=== PATIENT | female | born 1990 | race American Indian/Alaskan Native ===

== ENCOUNTER 2020-03-29 01:00 | Emergency (ER) | payer MEDICAID ==
[2020-03-29 01:47] LABS: Bacteria,Urine 1+ /HPF (Negative); Bilirubin,Urine NEG (Negative); Blood,Urine NEG (Negative); Color,Urine Yellow (Yellow); Mucus,Urine FEW /HPF; Protein,Urine <15 mg/dL mg/dL (Negative); Urobilinogen,Urine < 2.0 mg/dL (<2.0)
[2020-03-29 01:49] LABS: Basophils % (Auto) 0.5 % (0.0-1.8); Eosinophils # (Auto) 0.1 K/mm3 (0.0-0.4); Eosinophils % (Auto) 0.7 % (0.0-4.3); Hematocrit 39.7 % (30.3-42.9); Hemoglobin 13.5 gm/dl (10.1-14.3); Lymphocytes # (Auto) 1.2 K/mm3 (1.2-5.4); Lymphocytes % (Auto) 14.9 % (13.4-35.0); Mean Corpuscular HGB Conc 34 % (30-34); Mean Corpuscular Volume 89 fl (79-97); Monocytes % (Auto) 12.3 % (0.0-7.3); Platelet Count 221 K/mm3 (140-440); Red Blood Count 4.47 M/mm3 (3.65-5.03); Red Cell Distribution Width 13.4 % (13.2-15.2)
[2020-03-29 02:11] LABS: Alanine Aminotransferase 9 units/L (7-56); Albumin 4.2 g/dL (3.9-5); Blood Urea Nitrogen 7 mg/dL (7-17); Calcium 9.2 mg/dL (8.4-10.2); Hemolysis Index 4
[2020-03-29 02:15] LABS: BUN/Creatinine Ratio 10
--- NOTE | 2020-03-29 02:23 | Event Note ---
ED Screening Note Date of service: 03/29/20 Time: 02:22 ED Screening Note: Patient complains of left-sided abdominal pain + Dysuria History of section Fever 100.3 noted This initial assessment/diagnostic orders/clinical plan/treatment(s) is/are subject to change based on patients health status, clinical progression and re- assessment by fellow clinical providers in the ED. Further treatment and workup at subsequent clinical providers discretion. Patient/guardian urged not to elope from the ED as their condition may be serious if not clinically assessed and managed. Initial orders include: Labs CT
--- NOTE | 2020-03-29 03:27 | Cat Scan Report ---
CT ABDOMEN AND PELVIS WITH CONTRAST HISTORY: acute left sided abdominal pain, + fever. COMPARISON: None. TECHNIQUE: CT images of the abdomen and pelvis were obtained following administration of intravenous contrast. All CT scans at this location are performed using CT dose reduction for ALARA by means of automated exposure control. CONTRAST: 100 ml of intravenous contrast administered. FINDINGS: Lungs/bones: Lung bases are clear. No acute osseous abnormality. Abdomen/pelvis: The liver, gallbladder, spleen, pancreas, adrenals, kidneys, and proximal GI tract a ppear unremarkable. Urinary bladder is unremarkable. IUD appears to be positioned within the lower uterine segment. There is a small amount of pelvic free fluid and there is a 2.3 cm simple right ovarian cyst which is most likely functional. Some of the distal small bowel loops are fluid-filled with mild mucosal enhanceme nt but no wall thickening or obstruction. IMPRESSION: 1. Nonspecific distal small bowel findings could be seen with enteritis. 2. Likely functional right ovarian cyst with trace pelvic free fluid which is most likely physiologic in a woman of this age. Signer Name: Estuardo Justice MD Signed: 03/29/2020 3:23 AM Workstation Name: [id number]
[2020-03-29] MEDS ORDERED: dexAMETHasone 20 MG/5 ML VIAL IV ONE (04:24)
[2020-03-29] MEDS ORDERED: KETOROLAC 30 MG/1 ML INJ IV ONE (04:24)
--- NOTE | 2020-03-29 04:55 | Emergency Department Report ---
ED General Adult HPI - General Chief complaint: Abdominal Pain Stated complaint: BACK PAIN,MIGRAINE,STOMACH PAIN Time Seen by Provider: 03/29/20 04:24 Source: patient Mode of arrival: Ambulatory Limitations: No Limitations - History of Present Illness Initial comments: 29-year-old -[place] female patient presents with complaints of left- sided abdominal pain x2 days. She rates her pain as an 8/10 in severity. She nausea/vomiting/diarrhea, hematochezia/melena, chest pain/shortness of breath, or fever/chills/sweats. She admits to surgical history of a section. No recent known sick contacts per patient or recent antibiotic use. She admits to dysuria and urinary frequency without vaginal discharge/bleeding or dyspareunia. Severity scale (0 -10): 7 - Related Data Previous Rx's Medication Instructions Recorded Last Taken Type Acetaminophen/Codeine [Tylenol 1 tab PO Q6H PRN #10 tab 03/29/20 Unknown Rx /Codeine # 3 tab] Ciprofloxacin HCl [Ciprofloxacin 500 mg PO Q12HR 7 Days #14 tab 03/29/20 Unknown Rx TAB] Prednisone [predniSONE 10 mg 10 mg PO .TAPER #1 tab.ds.pk 03/29/20 Unknown Rx (6-Day Pack, 21 Tabs)] metroNIDAZOLE [Flagyl TAB] 500 mg PO Q8HR 7 Days #21 tablet 03/29/20 Unknown Rx Allergies Allergy/AdvReac Type Severity Reaction Status Date / Time No Known Allergies Allergy Unverified 03/29/20 01:21 ED Review of Systems ROS: Stated complaint: BACK PAIN,MIGRAINE,STOMACH PAIN Other details as noted in HPI Constitutional: denies: chills, diaphoresis, fever, malaise, weakness ENT: denies: throat pain Respiratory: denies: cough, shortness of breath Cardiovascular: denies: chest pain, palpitations Endocrine: denies: excessive sweating Gastrointestinal: abdominal pain. denies: vomiting, diarrhea, constipation Genitourinary: dysuria, frequency. denies: urgency, hematuria, discharge Skin: denies: rash, lesions, change in color Neurological: denies: headache Hematological/Lymphatic: denies: swollen glands ED Past Medical Hx - Medications Home Medications: Home Medications Medication Instructions Recorded Confirmed Last Taken Type Acetaminophen/Codeine [Tylenol 1 tab PO Q6H PRN #10 tab 03/29/20 Unknown Rx /Codeine # 3 tab] Ciprofloxacin HCl [Ciprofloxacin 500 mg PO Q12HR 7 Days #14 tab 03/29/20 Unknown Rx TAB] Prednisone [predniSONE 10 mg 10 mg PO .TAPER #1 tab.ds.pk 03/29/20 Unknown Rx (6-Day Pack, 21 Tabs)] metroNIDAZOLE [Flagyl TAB] 500 mg PO Q8HR 7 Days #21 tablet 03/29/20 Unknown Rx ED Physical Exam - General Limitations: No Limitations General appearance: alert, in no apparent distress - Head Head exam: Present: atraumatic, normocephalic - Eye Eye exam: Present: normal appearance. Absent: scleral icterus - ENT ENT exam: Present: mucous membranes moist - Respiratory Respiratory exam: Absent: respiratory distress - Cardiovascular Cardiovascular Exam: Present: regular rate, normal rhythm - GI/Abdominal GI/Abdominal exam: Present: soft, tenderness (LUQ), normal bowel sounds. Absent: distended, guarding, rebound, rigid - Back Exam Back exam: Present: normal inspection, full ROM. Absent: CVA tenderness (R), CVA tenderness (L) - Neurological Exam Neurological exam: Present: alert, oriented X3 - Psychiatric Psychiatric exam: Present: normal affect, normal mood - Skin Skin exam: Present: warm, dry, intact, normal color. Absent: rash, cyanosis, diaphoretic, erythema, petechiae, pallor, ecchymosis ED Course Vital Signs 03/29/20 03/29/20 01:12 05:22 Temperature 100.3 F H 98.5 F Pulse Rate 83 71 Respiratory 16 16 Rate Blood Pressure 109/65 99/57 [Left] O2 Sat by Pulse 97 99 Oximetry ED Medical Decision Making - Lab Data Result diagrams: 03/29/20 01:35 03/29/20 01:35 - Radiology Data Radiology results: report reviewed CT ABDOMEN AND PELVIS WITH CONTRAST HISTORY: acute left sided abdominal pain, + fever. COMPARISON: None. TECHNIQUE: CT images of the abdomen and pelvis were obtained following administration of intravenous contrast. All CT scans at this location are performed using CT dose reduction for ALARA by means of automated exposure control. CONTRAST: 100 ml of intravenous contrast administered. FINDINGS: Lungs/bones: Lung bases are clear. No acute osseous abnormality. Abdomen/pelvis: The liver, gallbladder, spleen, pancreas, adrenals, kidneys, and proximal GI tract appear unremarkable. Urinary bladder is unremarkable. IUD appears to be positioned within the lower uterine segment. There is a small amount of pelvic free fluid and there is a 2.3 cm simple right ovarian cyst which is most likely functional. Some of the distal small bowel loops are fluid- filled with mild mucosal enhancement but no wall thickening or obstruction. IMPRESSION: 1. Nonspecific distal small bowel findings could be seen with enteritis. 2. Likely functional right ovarian cyst with trace pelvic free fluid which is most likely physiologic in a woman of this age. - Medical Decision Making 29-year-old -[place] female patient presents with complaints of left- sided abdominal pain x2 days. She rates her pain as an 8/10 in severity. She nausea/vomiting/diarrhea, hematochezia/melena, chest pain/shortness of breath, or fever/chills/sweats. She admits to surgical history of a section. No recent known sick contacts per patient or recent antibiotic use. She admits to dysuria and urinary frequency without vaginal discharge/bleeding or dyspareunia. Left-sided abdominal pain noted on exam without guarding or rebound. CBC, CMP, and lipase are without acute abnormalities. UA is WNL. CT abdomen shows enteritis without obstruction or bowel wall thickening. Patient does have a low-grade fever of 100.3. She was given Toradol and Decadron and fever is now resolved. No tachycardia noted during visit. Her pain is currently controlled. Given fever, will treat for bacterial enteritis with Cipro and Flagyl. Recommend follow-up with primary care and GI in 3 days. She is well-appearing and stable for discharge home. Discussed signs and symptoms that should prompt immediate return to the emergency department in detail with patient who verbalizes understanding. Critical care attestation.: If time is entered above; I have spent that time in minutes in the direct care of this critically ill patient, excluding procedure time. ED Disposition Clinical Impression: Enteritis Disposition: DC-01 TO HOME OR SELFCARE Is pt being admited?: No Condition: Stable Instructions: Viral Gastroenteritis, Adult, Abdominal Pain, Adult, Abdominal Pain (ED) Prescriptions: Ciprofloxacin HCl [Ciprofloxacin TAB] 500 mg PO Q12HR 7 Days #14 tab metroNIDAZOLE [Flagyl TAB] 500 mg PO Q8HR 7 Days #21 tablet Prednisone [predniSONE 10 mg (6-Day Pack, 21 Tabs)] 10 mg PO .TAPER #1 tab.ds.pk Acetaminophen/Codeine [Tylenol /Codeine # 3 tab] 1 tab PO Q6H PRN #10 tab PRN Reason: Pain , Severe (7-10) Referrals: GUILLAUME BRIAN MD [Primary Care Provider] - 2-3 Days [facility] [Provider Group] - 2-3 Days Forms: Work/School Release Form(ED)
[2020-03-29 05:24] VITALS: BP 99/57
== END 2020-03-29 05:26 | disposition home or self-care (01) ==
LOC: ED 01:00
DX: K52.89 Other specified noninfective gastroenteritis and colitis (principal); Z79.899 Other long term (current) drug therapy
CPT/HCPCS: 36415; 74177; 80053; 81001; 83690; 84702; 85025; 96374; 96375; 99284; J1100; J1885; Q9967

== ENCOUNTER 2020-04-05 12:21 | Emergency (ER) | payer MEDICAID ==
[2020-04-05] MEDS ORDERED: SODIUM CHLORIDE 0.9% 1000 ML 1,000 ML IV ONE (13:07)
[2020-04-05] MEDS ORDERED: MORPHINE 4 MG/1 ML INJ IV ONE (13:07)
[2020-04-05] MEDS: ONDANSETRON 4 MG/2 ML INJ IV ONE (13:36)
--- NOTE | 2020-04-05 13:43 | Emergency Department Report ---
ED Abdominal Pain HPI - General Chief Complaint: Abdominal Pain Stated Complaint: PADMINI Time Seen by Provider: 04/05/20 13:04 Source: patient Mode of arrival: Wheelchair Limitations: No Limitations - History of Present Illness Initial Comments: This 29-year-old female presents the emergency department the chief complaint of sudden onset of left upper quadrant and left lower quadrant abdominal pain that started approximately 2 hours ago. She reports is rating up into her chest. She reports has been associated nausea and vomiting. Pain is 10 out of 10. She denies any aggravating or alleviating factors. She was recently seen in the emergency department due to urinary tract infection. She denies any other known past medical history, current medication use or known allergies to medication. Severity scale (0 -10): 3 - Related Data Previous Rx's Medication Instructions Recorded Last Taken Type Acetaminophen/Codeine [Tylenol 1 tab PO Q6H PRN #10 tab 03/29/20 Unknown Rx /Codeine # 3 tab] Ciprofloxacin HCl [Ciprofloxacin 500 mg PO Q12HR 7 Days #14 tab 03/29/20 Unknown Rx TAB] Prednisone [predniSONE 10 mg 10 mg PO .TAPER #1 tab.ds.pk 03/29/20 Unknown Rx (6-Day Pack, 21 Tabs)] metroNIDAZOLE [Flagyl TAB] 500 mg PO Q8HR 7 Days #21 tablet 03/29/20 Unknown Rx Ibuprofen [Motrin 800 MG tab] 800 mg PO Q8HR #30 tablet 04/05/20 Unknown Rx traMADoL [Ultram 50 MG tab] 50 mg PO Q6HR PRN #12 tablet 04/05/20 Unknown Rx Allergies Allergy/AdvReac Type Severity Reaction Status Date / Time No Known Allergies Allergy Unverified 03/29/20 01:21 ED Review of Systems ROS: Stated complaint: PADMINI Other details as noted in HPI Comment: All other systems reviewed and negative Constitutional: denies: chills, fever Eyes: denies: eye pain, eye discharge, vision change ENT: denies: ear pain, throat pain Respiratory: denies: cough, shortness of breath, wheezing Cardiovascular: denies: chest pain, palpitations Endocrine: no symptoms reported Gastrointestinal: as per HPI, abdominal pain. denies: nausea, diarrhea Genitourinary: denies: urgency, dysuria, discharge Musculoskeletal: denies: back pain, joint swelling, arthralgia Skin: denies: rash, lesions Neurological: denies: headache, weakness, paresthesias Psychiatric: denies: anxiety, depression Hematological/Lymphatic: denies: easy bleeding, easy bruising ED Past Medical Hx - Past Medical History Previous Medical History?: Yes Hx Asthma: Yes - Social History Smoking Status: Never Smoker Substance Use Type: None - Medications Home Medications: Home Medications Medication Instructions Recorded Confirmed Last Taken Type Acetaminophen/Codeine [Tylenol 1 tab PO Q6H PRN #10 tab 03/29/20 Unknown Rx /Codeine # 3 tab] Ciprofloxacin HCl [Ciprofloxacin 500 mg PO Q12HR 7 Days #14 tab 03/29/20 Unknown Rx TAB] Prednisone [predniSONE 10 mg 10 mg PO .TAPER #1 tab.ds.pk 03/29/20 Unknown Rx (6-Day Pack, 21 Tabs)] metroNIDAZOLE [Flagyl TAB] 500 mg PO Q8HR 7 Days #21 tablet 03/29/20 Unknown Rx Ibuprofen [Motrin 800 MG tab] 800 mg PO Q8HR #30 tablet 04/05/20 Unknown Rx traMADoL [Ultram 50 MG tab] 50 mg PO Q6HR PRN #12 tablet 04/05/20 Unknown Rx ED Physical Exam - General Limitations: No Limitations General appearance: alert, in no apparent distress - Head Head exam: Present: atraumatic, normocephalic - Eye Eye exam: Present: normal appearance, PERRL, EOMI Pupils: Present: normal accommodation - ENT ENT exam: Present: normal exam, normal orophraynx, mucous membranes moist - Neck Neck exam: Present: normal inspection. Absent: tenderness, meningismus - Respiratory Respiratory exam: Present: normal lung sounds bilaterally. Absent: respiratory distress, wheezes, rales, rhonchi, stridor - Cardiovascular Cardiovascular Exam: Present: regular rate, normal rhythm, normal heart sounds. Absent: systolic murmur, diastolic murmur, rubs, gallop - GI/Abdominal GI/Abdominal exam: Present: soft, tenderness (TTP To LUQ and LUQ), normal bowel sounds. Absent: distended, guarding, rebound, rigid - Extremities Exam Extremities exam: Present: normal inspection, full ROM, normal capillary refill. Absent: tenderness, calf tenderness - Back Exam Back exam: Present: normal inspection, full ROM. Absent: tenderness, CVA tenderness (R), CVA tenderness (L) - Neurological Exam Neurological exam: Present: alert, oriented X3, normal gait - Psychiatric Psychiatric exam: Present: normal affect, normal mood - Skin Skin exam: Present: warm, dry, intact, normal color. Absent: rash ED Course Vital Signs 04/05/20 04/05/20 13:03 13:36 Temperature 99.9 F H Pulse Rate 62 Respiratory 18 18 Rate Blood Pressure 128/80 O2 Sat by Pulse 100 Oximetry ED Medical Decision Making - Lab Data Result diagrams: 04/05/20 13:12 04/05/20 13:12 Lab Results 04/05/20 04/05/20 04/05/20 Range/Units 13:12 13:12 13:12 WBC 7.7 (4.5-11.0) K/mm3 RBC 4.84 (3.65-5.03) M/mm3 Hgb 14.1 (10.1-14.3) gm/dl Hct 42.7 (30.3-42.9) % MCV 88 (79-97) fl MCH 29 (28-32) pg MCHC 33 (30-34) % RDW 13.9 (13.2-15.2) % Plt Count 261 (140-440) K/mm3 Lymph % (Auto) 42.6 H (13.4-35.0) % Collin % (Auto) 8.8 H (0.0-7.3) % Eos % (Auto) 0.8 (0.0-4.3) % Baso % (Auto) 0.2 (0.0-1.8) % Lymph # (Auto) 3.3 (1.2-5.4) K/mm3 Collin # (Auto) 0.7 (0.0-0.8) K/mm3 Eos # (Auto) 0.1 (0.0-0.4) K/mm3 Baso # (Auto) 0.0 (0.0-0.1) K/mm3 Seg Neutrophils % 47.6 (40.0-70.0) % Seg Neutrophils # 3.7 (1.8-7.7) K/mm3 Sodium 137 (137-145) mmol/L Potassium 4.9 (3.6-5.0) mmol/L Chloride 104.3 (98-107) mmol/L Carbon Dioxide 26 (22-30) mmol/L Anion Gap 12 mmol/L BUN 7 (7-17) mg/dL Creatinine 0.7 (0.6-1.2) mg/dL Estimated GFR > 60 ml/min BUN/Creatinine Ratio 10 % Glucose 83 (65-100) mg/dL Calcium 9.4 (8.4-10.2) mg/dL Total Bilirubin 0.20 (0.1-1.2) mg/dL AST 15 (5-40) units/L ALT 10 (7-56) units/L Alkaline Phosphatase 49 (35-129) units/L Total Protein 7.3 (6.3-8.2) g/dL Albumin 4.0 (3.9-5) g/dL Albumin/Globulin Ratio 1.2 % Lipase 29 (13-60) units/L HCG, Qual Negative (Negative) - Radiology Data Radiology results: report reviewed, image reviewed XRay Report Signed Patient: STEVE SEBASTIAN MR# : [id number] : 1990 Acct:[id number] Age/Sex: 29 / F ADM Date: 04/05/20 Loc: ED Attending Dr: Ordering Physician: JYOTI LACEY Date of Service: 04/05/20 Procedure(s): XR chest 1V ap Accession Number(s): [id number] cc: JYOTI LACEY Fluoro Time In Minutes: XR chest 1V ap INDICATION / CLINICAL INFORMATION: severe sudden upper abdominal/ chest pain. COMPARISON: None available. FINDINGS: SUPPORT DEVICES: None. HEART /PULMONARY VASCULATURE: No significant abnormality. LUNGS / PLEURA: No significant pulmonary or pleural abnormality. No pneumothorax. ADDITIONAL FINDINGS: No significant additional findings. IMPRESSION: 1. No acute findings. Signer Name: Danyell Bowser MD Signed: 04/05/2020 3:01 PM Workstation Name: [id number] Transcribed By: JS Dictated By: DANYELL BOWSER MD Electronically Authenticated By: DANYELL BOWSER MD Signed Date/Time: 04/05/20 1501 Cat Scan Report Signed Patient: STEVE SEBASTIAN MR# : [id number] : 1990 Acct:[id number] Age/Sex: 29 / F ADM Date: 04/05/20 Loc: ED Attending Dr: Ordering Physician: JYOTI LACEY Date of Service: 04/05/20 Procedure(s): CT abdomen pelvis w con Accession Number(s): [id number] cc: JYOTI LACEY CT abdomen pelvis w con INDICATION: severe abdominal pain, LLQ, LUQ. TECHNIQUE: All CT scans at this location are performed using the following dose modulation technique: Automated exposure control. CONTRAST: Omnipaque 300, 100 cc IV injection. COMPARISON: None available. CT ABDOMEN: The parenchymal organs are unremarkable in appearance. Negative for abdominal mass, fluid or inflammation. The bowel is not dilated or thickened. CT PELVIS: Negative for mass, fluid or inflammation. The appendix is not identified. No right lower quadrant inflammatory process. The right ovary contains a ruptured corpus luteum cyst. A small amount of pelvic free fluid is present. An IUD is located inferiorly within the cervix. IMPRESSION: 1. Negative for obstruction or localized inflammation. 2. Ruptured corpus luteum cyst with associated free fluid. 3. IUD is malpositioned inferiorly within the cervix. Signer Name: Jalen Jones MD Signed: 04/05/2020 4:00 PM Workstation Name: [id number] Transcribed By: ES Dictated By: Jalen Jones MD Electronically Authenticated By: Jalen Jones MD Signed Date/Time: 04/05/20 1600 - Medical Decision Making Patient nontoxic in no acute distress. Vital signs are stable. Her CAT scan showed a ruptured corpus luteum cyst with some mild free fluid. Her labs were unremarkable. She is hemodynamically stable. She declined pelvic examination is unconcerned about any exposure to STD and my suspicion for TOA or PID is low at this time. CT scan ruled out small bowel obstruction, bowel inflammation, appendicitis. She was given IV fluids, antiemetics and pain medication and felt much better. Repeat multiple abdominal examinations have been unremarkable. She has no rebound or guarding. She feels better wants to go home. Will discharge anti-inflammatories and pain medication and [facility]ER follow-up. Her CT also showed some malalignment of her IUD which recommend she follow-up with her MOLD SPRAYER for removal. She requests agreeable to this plan. Verbalized understand the diagnosis, treatment plan and follow-up instructions and all of her questions were answered. - Differential Diagnosis ruptured cyst, appendicitis, UTI Critical care attestation.: If time is entered above; I have spent that time in minutes in the direct care of this critically ill patient, excluding procedure time. ED Disposition Clinical Impression: Ruptured cyst of left ovary Disposition: TO HOME OR SELFCARE Is pt being admited?: No Condition: Stable Instructions: Ovarian Cyst, [id number], Abdominal Pain (ED) Prescriptions: Ibuprofen [Motrin 800 MG tab] 800 mg PO Q8HR #30 tablet traMADoL [Ultram 50 MG tab] 50 mg PO Q6HR PRN #12 tablet PRN Reason: breakthrough pain Referrals: PRIMARY CAREMD [Primary Care Provider] - 3-5 Days EVE WAGGONER JR, MD [Staff Physician] - 3-5 Days Forms: Work/School Release Form(ED) Time of Disposition: 17:07
[2020-04-05 14:02] LABS: Basophils % (Auto) 0.2 % (0.0-1.8); Eosinophils # (Auto) 0.1 K/mm3 (0.0-0.4); Eosinophils % (Auto) 0.8 % (0.0-4.3); Hematocrit 42.7 % (30.3-42.9); Hemoglobin 14.1 gm/dl (10.1-14.3); Lymphocytes # (Auto) 3.3 K/mm3 (1.2-5.4); Lymphocytes % (Auto) 42.6 % (13.4-35.0); Mean Corpuscular HGB Conc 33 % (30-34); Mean Corpuscular Volume 88 fl (79-97); Monocytes # (Auto) 0.7 K/mm3 (0.0-0.8); Monocytes % (Auto) 8.8 % (0.0-7.3); Platelet Count 261 K/mm3 (140-440); Red Blood Count 4.84 M/mm3 (3.65-5.03); Red Cell Distribution Width 13.9 % (13.2-15.2)
[2020-04-05 14:24] LABS: Alanine Aminotransferase 10 units/L (7-56); Blood Urea Nitrogen 7 mg/dL (7-17); Calcium 9.4 mg/dL (8.4-10.2); Hemolysis Index 8
[2020-04-05 14:33] LABS: BUN/Creatinine Ratio 10
--- NOTE | 2020-04-05 15:06 | XRay Report ---
XR chest 1V ap INDICATION / CLINICAL INFORMATION: severe sudden upper abdominal/ chest pain. COMPARISON: None available. FINDINGS: SUPPORT DEVICES: None. HEART /PULMONARY VASCULATURE: No significant abnormality. LUNGS / PLEURA: No significant pulmonary or pleural abnormality. No pneumothorax. ADDITIONAL FINDINGS: No significant additional findings. IMPRESSION: 1. No acute findings. Signer Name: Reymundo Bowser MD Signed: 04/05/2020 3:01 PM Workstation Name: [id number]
--- NOTE | 2020-04-05 16:05 | Cat Scan Report ---
CT abdomen pelvis w con INDICATION: severe abdominal pain, LLQ, LUQ. TECHNIQUE: All CT scans at this location are performed using the following dose modulation technique: Automated exposure control. CONTRAST: Omnipaque 300, 100 cc IV injection. COMPARISON: None available. CT ABDOMEN: The parenchymal organs are unremarkable in appearance. Negative for abdominal mass, fluid or inflammation. The bowel is not dilated or thickened. CT PELVIS: Negative for mass, fluid or inflammation. The appendix is not identified. No right lower q uadrant inflammatory process. The right ovary contains a ruptured corpus luteum cyst. A small amount of pelvic free fluid is presen t. An IUD is located inferiorly within the cervix. IMPRESSION: 1. Negative for obstruction or localized inflammation. 2. Ruptured corpus luteum cyst with associated free fluid. 3. IUD is malpositioned inferiorly within the cervix. Signer Name: Jalen Jones MD Signed: 04/05/2020 4:00 PM Workstation Name: [id number]
[2020-04-05 17:09] LABS: Bilirubin,Urine NEG (Negative); Blood,Urine MOD (Negative); Color,Urine Straw (Yellow); Mucus,Urine FEW /HPF; Protein,Urine <15 mg/dL mg/dL (Negative); Urobilinogen,Urine < 2.0 mg/dL (<2.0)
[2020-04-05 18:05] VITALS: BP 111/63
== END 2020-04-05 18:05 | disposition home or self-care (01) ==
LOC: ED 12:21
DX: N83.292 Other ovarian cyst, left side (principal); R11.2 Nausea with vomiting, unspecified; J45.909 Unspecified asthma, uncomplicated; Z79.1 Long term (current) use of non-steroidal anti-inflammatories (NSAID); Z79.2 Long term (current) use of antibiotics; Z79.899 Other long term (current) drug therapy
CPT/HCPCS: 36415; 71045; 74177; 80053; 81001; 83690; 84703; 85025; 87086; 96361; 96374; 96375; 99284; J2270; J2405; J7030; Q9967

== ENCOUNTER 2020-06-03 10:23 | Emergency (ER) | payer MEDICAID ==
[2020-06-03 10:30] VITALS: BP 101/65
[2020-06-03] MEDS ORDERED: FLUORESCEIN 1 MG STRIP OP ONE ×2 (10:51→10:53)
[2020-06-03] MEDS ORDERED: TETRACAINE 0.5% OPHTH SOLN 4ML OU ONE (10:52)
[2020-06-03] MEDS ORDERED: BALANCED SALT IRRIG (BSS) OPHTH SOLN 15 ML ONE (10:53)
[2020-06-03] MEDS ORDERED: TETRACAINE 0.5% OPHTH SOLN 4ML ONE (10:53)
--- NOTE | 2020-06-03 11:02 | Emergency Department Report ---
ED Eye Problem HPI - General Chief complaint: Eye Problems Stated complaint: RT EYE IRRITATION Time Seen by Provider: 06/03/20 10:27 Source: patient Mode of arrival: Ambulatory Limitations: No Limitations - History of Present Illness Initial comments: This very pleasant 29-year-old female presents the emergency department chief complaint of right eye pain and sensation that there is a foreign body in it. She reports she slept in her contacts last night and thinks that the contact may still be in her right eye. She denies any associated fever, chills, night sweats, headache, dizziness, blurry vision, nausea, vomiting, diarrhea, chest pain, shortness of breath or any other associated symptoms. - Related Data Previous Rx's Medication Instructions Recorded Last Taken Type Acetaminophen/Codeine [Tylenol 1 tab PO Q6H PRN #10 tab 03/29/20 Unknown Rx /Codeine # 3 tab] Ciprofloxacin HCl [Ciprofloxacin 500 mg PO Q12HR 7 Days #14 tab 03/29/20 Unknown Rx TAB] Prednisone [predniSONE 10 mg 10 mg PO .TAPER #1 tab.ds.pk 03/29/20 Unknown Rx (6-Day Pack, 21 Tabs)] metroNIDAZOLE [Flagyl TAB] 500 mg PO Q8HR 7 Days #21 tablet 03/29/20 Unknown Rx DOXYCYCLINE Hyclate [Vibramycin 100 mg PO Q12HR #20 capsule 04/05/20 Unknown Rx CAP] Ibuprofen [Motrin 800 MG tab] 800 mg PO Q8HR #30 tablet 04/05/20 Unknown Rx traMADoL [Ultram 50 MG tab] 50 mg PO Q6HR PRN #12 tablet 04/05/20 Unknown Rx Erythromycin [Erythromycin Ophth 10 applic OP Q4HR #1 tube 06/03/20 Unknown Rx Oint] Allergies Allergy/AdvReac Type Severity Reaction Status Date / Time No Known Allergies Allergy Unverified 03/29/20 01:21 ED Review of Systems ROS: Stated complaint: RT EYE IRRITATION Other details as noted in HPI Comment: All other systems reviewed and negative Constitutional: denies: chills, fever Eyes: as per HPI, eye pain. denies: eye discharge, vision change ENT: denies: ear pain, throat pain Respiratory: denies: cough, shortness of breath, wheezing Cardiovascular: denies: chest pain, palpitations Endocrine: no symptoms reported Gastrointestinal: denies: abdominal pain, nausea, diarrhea Genitourinary: denies: urgency, dysuria, discharge Musculoskeletal: denies: back pain, joint swelling, arthralgia Skin: denies: rash, lesions Neurological: denies: headache, weakness, paresthesias Psychiatric: denies: anxiety, depression Hematological/Lymphatic: denies: easy bleeding, easy bruising ED Past Medical Hx - Past Medical History Previous Medical History?: Yes Hx Asthma: Yes - Surgical History Past Surgical History?: Yes Additional Surgical History: - Social History Smoking Status: Never Smoker Substance Use Type: None - Medications Home Medications: Home Medications Medication Instructions Recorded Confirmed Last Taken Type Acetaminophen/Codeine [Tylenol 1 tab PO Q6H PRN #10 tab 03/29/20 Unknown Rx /Codeine # 3 tab] Ciprofloxacin HCl [Ciprofloxacin 500 mg PO Q12HR 7 Days #14 tab 03/29/20 Unknown Rx TAB] Prednisone [predniSONE 10 mg 10 mg PO .TAPER #1 tab.ds.pk 03/29/20 Unknown Rx (6-Day Pack, 21 Tabs)] metroNIDAZOLE [Flagyl TAB] 500 mg PO Q8HR 7 Days #21 tablet 03/29/20 Unknown Rx DOXYCYCLINE Hyclate [Vibramycin 100 mg PO Q12HR #20 capsule 04/05/20 Unknown Rx CAP] Ibuprofen [Motrin 800 MG tab] 800 mg PO Q8HR #30 tablet 04/05/20 Unknown Rx traMADoL [Ultram 50 MG tab] 50 mg PO Q6HR PRN #12 tablet 04/05/20 Unknown Rx Erythromycin [Erythromycin Ophth 10 applic OP Q4HR #1 tube 06/03/20 Unknown Rx Oint] ED Physical Exam - General Limitations: No Limitations General appearance: alert, in no apparent distress - Head Head exam: Present: atraumatic, normocephalic - Eye Eye exam: Present: normal appearance, PERRL Pupils: Present: normal accommodation - ENT ENT exam: Present: normal exam, normal orophraynx, mucous membranes moist - Neck Neck exam: Present: normal inspection, full ROM. Absent: tenderness, meningismus - Respiratory Respiratory exam: Present: normal lung sounds bilaterally. Absent: respiratory distress, wheezes, rales, rhonchi, stridor - Cardiovascular Cardiovascular Exam: Present: regular rate, normal rhythm, normal heart sounds. Absent: systolic murmur, diastolic murmur, rubs, gallop - GI/Abdominal GI/Abdominal exam: Present: soft, normal bowel sounds. Absent: distended, tenderness, guarding, rebound, rigid - Extremities Exam Extremities exam: Present: normal inspection, full ROM, normal capillary refill. Absent: tenderness - Back Exam Back exam: Present: normal inspection, full ROM. Absent: tenderness, CVA tenderness (R), CVA tenderness (L) - Neurological Exam Neurological exam: Present: alert, oriented X3, normal gait - Psychiatric Psychiatric exam: Present: normal affect, normal mood - Skin Skin exam: Present: warm, dry, intact, normal color. Absent: rash ED Course Vital Signs 06/03/20 10:24 Temperature 97.9 F Pulse Rate 65 Respiratory 18 Rate Blood Pressure 101/65 O2 Sat by Pulse 98 Oximetry ED Medical Decision Making - Medical Decision Making Patient nontoxic in no acute distress. Fluorescein stain was done at the bedside and did show a small area of uptake at the pupil. No ulcerations, no dendritic lesions. Normal extraocular movements. The eye is soft to gross palpation. I will give the patient topical erythromycin and recommended outpatient follow-up with ophthalmology which was provided. She is instructed to return to the ER with any change or worsening symptoms. She verbalized understanding of the diagnosis, treatment plan and follow-up instructions and all of her questions were answered. - Differential Diagnosis corneal abrasion, foreign body, contusion Critical care attestation.: If time is entered above; I have spent that time in minutes in the direct care of this critically ill patient, excluding procedure time. ED Disposition Clinical Impression: Corneal abrasion Qualifiers: Encounter type: initial encounter Laterality: right Qualified Code(s): S05.01XA - Injury of conjunctiva and corneal abrasion without foreign body, right eye, initial encounter Disposition: - TO HOME OR SELFCARE Is pt being admited?: No Condition: Stable Instructions: Corneal Abrasion Prescriptions: Erythromycin [Erythromycin Ophth Oint] 10 applic OP Q4HR #1 tube Referrals: LUBA SEWELL MD [Staff Physician] - 3-5 Days Forms: Work/School Release Form(ED) Time of Disposition: 11:01
== END 2020-06-03 12:10 | disposition home or self-care (01) ==
LOC: ED 10:23
DX: S05.01XA Injury of conjunctiva and corneal abrasion without foreign body, right eye, initial encounter (principal); J45.909 Unspecified asthma, uncomplicated; Z98.890 Other specified postprocedural states; Z79.1 Long term (current) use of non-steroidal anti-inflammatories (NSAID); Z79.2 Long term (current) use of antibiotics; Z79.899 Other long term (current) drug therapy; X58.XXXA Exposure to other specified factors, initial encounter; Y93.89 Activity, other specified; Y92.89 Other specified places as the place of occurrence of the external cause; Y99.8 Other external cause status
CPT/HCPCS: 99282

== ENCOUNTER 2021-01-30 16:00 | Emergency (ER) | payer MEDICAID ==
[2021-01-30 16:37] VITALS: BP 104/63
--- NOTE | 2021-01-30 17:46 | Emergency Department Report ---
HPI - General Chief Complaint: Abdominal Pain Time Seen by Provider: 01/30/21 17:12 - HPI HPI: MSE 3 The patient is a 30-year-old female present with a chief complaint of abdominal pain and vaginal discharge. The patient states she is clear/white vaginal discharge for the past 2 weeks. Patient states for the past 3 days she has had left lower quadrant abdominal pain and nausea. Patient states she developed dysuria 2 days ago. Patient denies history of fever. The patient states she placed a tampon in last night and it is stuck inside as she has been unable to retrieve it ED Past Medical Hx - Past Medical History Previous Medical History?: Yes Hx Asthma: Yes Additional medical history: anemia - Surgical History Past Surgical History?: Yes Additional Surgical History: - Family History Family history: no significant - Social History Smoking Status: Never Smoker Substance Use Type: None (Denies illicit drug use) - Medications Home Medications: Home Medications Medication Instructions Recorded Confirmed Last Taken Type Acetaminophen/Codeine [Tylenol 1 tab PO Q6H PRN #10 tab 03/29/20 Unknown Rx /Codeine # 3 tab] Ciprofloxacin HCl [Ciprofloxacin 500 mg PO Q12HR 7 Days #14 tab 03/29/20 Unknown Rx TAB] Prednisone [predniSONE 10 mg 10 mg PO .TAPER #1 tab.ds.pk 03/29/20 Unknown Rx (6-Day Pack, 21 Tabs)] metroNIDAZOLE [Flagyl TAB] 500 mg PO Q8HR 7 Days #21 tablet 03/29/20 Unknown Rx DOXYCYCLINE Hyclate [Vibramycin 100 mg PO Q12HR #20 capsule 04/05/20 Unknown Rx CAP] Ibuprofen [Motrin 800 MG tab] 800 mg PO Q8HR #30 tablet 04/05/20 Unknown Rx traMADoL [Ultram 50 MG tab] 50 mg PO Q6HR PRN #12 tablet 04/05/20 Unknown Rx Erythromycin [Erythromycin Ophth 10 applic OP Q4HR #1 tube 06/03/20 Unknown Rx Oint] Ciprofloxacin HCl 500 mg PO BID #20 tablet 01/30/21 Unknown Rx ED Review of Systems ROS: Stated complaint: ABD PAIN/TAMPON STUCK X 3 DAYS Other details as noted in HPI Constitutional: denies: fever Eyes: denies: eye pain ENT: denies: throat pain Respiratory: no symptoms reported Cardiovascular: denies: chest pain Endocrine: no symptoms reported Gastrointestinal: abdominal pain, nausea Genitourinary: dysuria, discharge Musculoskeletal: denies: back pain Neurological: denies: headache Physical Exam - Physical Exam Vital Signs: Vital Signs 01/30/21 16:33 Temperature 98.6 F Pulse Rate 71 Respiratory 18 Rate Blood Pressure 104/63 [Right] O2 Sat by Pulse 99 Oximetry Physical Exam: GENERAL: The patient is well-developed well-nourished female lying on stretcher not appearing to be in acute distress. [] HEENT: Normocephalic. Atraumatic. Extraocular motions are intact. Patient has moist mucous membranes. NECK: Supple. Trachea midline CHEST/LUNGS: Clear to auscultation. There is no respiratory distress noted. HEART/CARDIOVASCULAR: Regular. There is no tachycardia. There is no gallop rub or murmur. ABDOMEN: Abdomen is soft, with mild diffuse discomfort to palpation but no rebound or guarding. Patient has normal bowel sounds. There is no abdominal distention. SKIN: There is no rash. There is no edema. There is no diaphoresis. NEURO: The patient is awake, alert, and oriented. The patient is cooperative. The patient has no focal neurologic deficits. The patient has normal speech MUSCULOSKELETAL: There is left CVA tenderness. There is no evidence of acute injury. PELVIC: Tampon visualized and removed using ring forceps. Cervix appears slightly erythematous. Scant white discharge. ED Course Vital Signs 01/30/21 16:33 Temperature 98.6 F Pulse Rate 71 Respiratory 18 Rate Blood Pressure 104/63 [Right] O2 Sat by Pulse 99 Oximetry ED Medical Decision Making - Differential Diagnosis UTI, pyelonephritis, urethritis, vaginitis, foreign body Critical care attestation.: If time is entered above; I have spent that time in minutes in the direct care of this critically ill patient, excluding procedure time. ED Disposition Clinical Impression: Retained vaginal foreign body, Dysuria Disposition: 01 HOME / SELF CARE / HOMELESS Is pt being admited?: No Does the pt Need Aspirin: No Condition: Stable Instructions: Vaginal Foreign Body, Dysuria, Abdominal Pain (ED) Additional Instructions: Return to the emergency department should you develop worsening symptoms, inability to tolerate food or liquids, high fever or any other concerns Prescriptions: Ciprofloxacin HCl 500 mg PO BID #20 tablet Referrals: JUSTIN NESS MD [Staff Physician] - 3-5 Days
[2021-01-30] MEDS ORDERED: LIDOCAINE-MPF (1%) 10 MG/1 ML VIAL 5 ML INFILTRATI ONE (18:50)
[2021-01-30] MEDS ORDERED: AZITHROMYCIN 1 GM ORAL PWDR PACKET PO ONE (18:50)
[2021-01-30 19:41] LABS: Bilirubin,Urine NEG (Negative); Blood,Urine NEG (Negative); Color,Urine Yellow (Yellow); Mucus,Urine 1+ /HPF; Urobilinogen,Urine < 2.0 mg/dL (<2.0)
[2021-01-30 19:42] LABS: HCG Qualitative,Urine Negative (Negative)
== END 2021-01-30 20:20 | disposition home or self-care (01) ==
LOC: ED 16:00
DX: T19.2XXA Foreign body in vulva and vagina, initial encounter (principal); R30.0 Dysuria; D64.9 Anemia, unspecified; J45.909 Unspecified asthma, uncomplicated; Z98.890 Other specified postprocedural states; X58.XXXA Exposure to other specified factors, initial encounter; Y93.89 Activity, other specified; Y92.89 Other specified places as the place of occurrence of the external cause; Y99.8 Other external cause status
CPT/HCPCS: 81001; 81025; 87210; 87591; 96372; 99284; J0696